=== PATIENT | female | born 1990 | race Caucasian/White ===

== ENCOUNTER 2017-02-03 10:43 | Emergency (ER) | payer BC ==
[2017-02-03 12:13] VITALS: BP 99/73
[2017-02-03] MEDS ORDERED: SUMAtriptan SQ* 6 MG/0.5 ML VIAL SUBCUT ONE (12:35)
--- NOTE | 2017-02-03 12:41 | UC ---
Headache HPI - HPI Summary HPI Summary: 26 yo female with headache since yesterday this feels like her typical migrain took maxalt >24 hrs ago pate persists n/v x 10 photophobia has had a fever and sore thoat fever broke last pm no cough - History Of Current Complaint Chief Complaint: UCGeneralIllness Stated Complaint: FEVER VOMITING DIARRHEA HEADACHE Time Seen by Provider: 02/03/17 12:16 Hx Obtained From: Patient Hx Last Menstrual Period: MAR 27 2016 Onset/Duration: Gradual Onset, Lasting Days Onset Of Symptoms: Gradual Currently Pain Is: Current Pain Scale(0-10)= - 6 Pain Scale Used: 0-10 Numeric Timing: Constant Character: Throbbing Location of Headache: Temporal Aggravating Factor: Exertion Allevating Factors: Nothing Associated Signs And Symptoms: Positive: Nausea, Vomiting. Negative: Neck Pain , Neck Stiffness, Decreased LOC, Visual Changes Related History: Similar Episode/DX As: - migrain - Allergies/Home Medications Allergies/Adverse Reactions: Allergies Allergy/AdvReac Type Severity Reaction Status Date / Time Acetaminophen [From Vicodin] Allergy Unknown Hives Verified 02/03/17 11:57 Hydrocodone [From Vicodin] Allergy Unknown Hives Verified 02/03/17 11:57 Ibuprofen Allergy Unknown Hives Verified 02/03/17 11:57 Metronidazole Allergy Unknown SWELLING Verified 02/03/17 11:57 RASH AFTER USING SUPPOSITORY Morphine and Related Allergy Unknown Hives Verified 02/03/17 11:57 Naproxen Allergy Unknown Hives Verified 02/03/17 11:57 Home Medications: Home Medications Ascorbic Acid [C 500] 500 mg PO 02/03/17 [History] Enoxaparin Sodium [Lovenox] 80 mg SC BID 02/03/17 [History Confirmed 02/03/17] Ferrous Sulfate [Iron (Ferrous Sulfate)] 50 mg PO DAILY 02/03/17 [History Confirmed 02/03/17] Ondansetron ODT TAB* [Zofran 4 MG Odt TAB*] 4 mg PO Q6H PRN 02/03/17 [History Confirmed 02/03/17] Vitamin TAB* 1 tab PO DAILY 02/03/17 [History Confirmed 02/03/17] Rizatriptan Benzoate [Maxalt-Re Dye Hand] 10 mg PO 02/03/17 [History] Sertraline* [Zoloft*] 50 mg PO BEDTIME 02/03/17 [History Confirmed 02/03/17] Vit-E 02/03/17 [History] PMH/Surg Hx/FS Hx/Imm Hx Previously Healthy: Yes Neurological History: Migraine - Surgical History Surgical History: Yes Surgery Procedure, Year, and Place: 2 C-SECTIONS. APPPENDECTOMY - Family History Known Family History: Positive: Hypertension, Other - migraines - Social History Alcohol Use: Rare Substance Use Type: None Smoking Status (MU): Never Smoked Tobacco Review of Systems Constitutional: Fever, Chills Skin: Negative Eyes: Photophobia ENT: Sore Throat Respiratory: Negative Cardiovascular: Negative Gastrointestinal: Vomiting, Diarrhea, Nausea Genitourinary: Negative Motor: Negative Neurovascular: Negative Musculoskeletal: Negative Neurological: Headache Psychological: Negative All Other Systems Reviewed And Are Negative: Yes Physical Exam Triage Information Reviewed: Yes Appearance: Well-Appearing, No Pain Distress, Well-Nourished Vital Signs: Initial Vital Signs Temp 97.7 F 02/03/17 12:02 Pulse 84 02/03/17 12:02 Resp 20 02/03/17 12:02 BP 99/73 02/03/17 12:02 Pulse Ox 99 02/03/17 12:02 Vital Signs Reviewed: Yes Eyes: Positive: Conjunctiva Clear ENT: Positive: Hearing grossly normal, Pharyngeal erythema, Tonsillar swelling. Negative: TMs normal - unable to vis due to cerumen Neck exam: Normal Neck: Positive: Nontender, No Lymphadenopathy Respiratory: Positive: Lungs clear, Normal breath sounds, No respiratory distress, No accessory muscle use Cardiovascular: Positive: RRR, No Murmur, Pulses Normal Abdomen Description: Positive: Nontender, No Organomegaly. Negative: CVA Tenderness (R), CVA Tenderness (L) Musculoskeletal: Positive: ROM Intact, No Edema Neurological Exam: Normal Neurological: Positive: Alert, Muscle Tone Normal Psychological Exam: Normal Skin Exam: Normal Re-Evaluation - Re-Evaluation First Eval Re-Evaluation Time: 13:24 Change: Improved Comment: headache much improved/desires to have her ears flused Second Eval Re-Evaluation Time: 13:56 Change: Improved - tm's normal bilaterally Headache Course/Dx - Differential Dx/Diagnosis Provider Diagnoses: pharyngitis. viral syndrome. migraine. cerumen impaction Discharge - Discharge Plan Condition: Stable Disposition: HOME Patient Education Materials: Pharyngitis (ED), Cerumen Impaction (ED), Migraine Headache (ED) Referrals: Ad Humphries MD [Primary Care Provider] - 2 Days (if not better)
== END 2017-02-03 14:05 | disposition home or self-care (01) ==
LOC: UCCORT 10:43
DX: J02.9 Acute pharyngitis, unspecified (principal); B34.9 Viral infection, unspecified; G43.909 Migraine, unspecified, not intractable, without status migrainosus; H61.20 Impacted cerumen, unspecified ear
CPT/HCPCS: 87651; 96372; 99203; G0463; J3030

== ENCOUNTER 2018-04-06 14:39 | Emergency (ER) | payer OTHER ==
[2018-04-06 16:09] VITALS: BP 109/74
--- NOTE | 2018-04-06 16:35 | ED ---
Headache - HPI Summary HPI Summary: 28 yr old female with history of post concussive migraine, prior TIAs, lupus and on lovenox for hyper coagulable state presents here with the complaint of headache. The aura began last evening, and then she went to bed in quiet room. She woke up at 130/2 am in the morning with headache, worse with noise and sound. Associated with light sensitivity. This it typical of her post concussive migraine. Pain is moderate to severe. She verbalized that she had TIA in the past year associated with migraine. She denies change in vision, speech, hearing, swallowing, gait. Denies focal weakness, numbness. No fever or chills. - History Of Current Complaint Chief Complaint: UCHeadache Stated Complaint: MIGRAINE Time Seen by Provider: 04/06/18 16:13 Hx Last Menstrual Period: 03/26/18 - Allergies/Home Medications Allergies/Adverse Reactions: Allergies Allergy/AdvReac Type Severity Reaction Status Date / Time acetaminophen [From Vicodin] Allergy Unknown Rash Verified 04/06/18 15:47 hydrocodone [From Vicodin] Allergy Unknown Rash Verified 04/06/18 15:47 methocarbamol Allergy Unknown Rash Verified 04/06/18 15:47 NSAIDS (Non-Steroidal Allergy Unknown Rash Verified 04/06/18 15:47 Anti-Inflamma Home Medications: Home Medications Amitriptyline TAB* [Elavil TAB*] 10 mg PO BEDTIME 04/06/18 [History Confirmed ] Cetirizine* [ZyrTEC 10 MG TAB*] 10 mg PO DAILY 04/06/18 [History Confirmed 04/06] Cholecalciferol TAB* [Vitamin D TAB*] 1,000 unit PO DAILY 04/06/18 [History Confirmed 04/06/18] Cyclobenzaprine (NF) [Cyclobenzaprine 5 MG (NF)] 2.5 mg PO BID 04/06/18 [ History Confirmed 04/06/18] Enoxaparin(*) [Lovenox(*)] 30 mg SUBCUT DAILY 04/06/18 [History Confirmed ] Ferrous Gluconate TAB* [Fergon TAB*] 325 mg PO BID 04/06/18 [History Confirmed 04/06/18] Fluticasone NASAL SPRAY 50MCG* [Flonase NASAL SPRAY 50MCG*] 2 spray BOTH NARES DAILY 04/06/18 [History Confirmed 04/06/18] Folic Acid TAB* [Folvite TAB*] 1 mg PO DAILY 04/06/18 [History Confirmed ] Magnesium Oxide [Magnesium] 400 mg PO DAILY 04/06/18 [History Confirmed 04/06/18 ] Riboflavin (Vitamin B2) [Riboflavin] 100 mg PO DAILY 04/06/18 [History Confirmed 04/06/18] Venlafaxine HCl [Effexor XR-] 37.5 mg PO DAILY 04/06/18 [History Confirmed 04/06] PMH/Surg Hx/FS Hx/Imm Hx Endocrine/Hematology History: Reports: Hx Systemic Lupus Erythematosus - hyper coagulable state Neurological History: Reports: Hx Transient Ischemic Attacks (TIA) - Surgical History Surgery Procedure, Year, and Place: 2 C-SECTIONS. LAP- APPY Infectious Disease History: No Infectious Disease History: Denies: Traveled Outside the [place] in Last 30 Days - Family History Known Family History: Positive: None - Social History Occupation: Disabled Alcohol Use: None Substance Use Type: Reports: None Smoking Status (MU): Never Smoked Tobacco Review of Systems Constitutional: Negative Positive: Headache. Negative: Weakness, Paresthesia, Numbness, Syncope, Slurred Speech All Other Systems Reviewed And Are Negative: Yes Physical Exam Triage Information Reviewed: Yes Vital Signs On Initial Exam: Initial Vitals Temp Pulse Resp BP Pulse Ox 99.2 F 88 17 109/74 100 04/06/18 16:03 04/06/18 16:03 04/06/18 16:03 04/06/18 16:03 04/06/18 16:03 Vital Signs Reviewed: Yes Appearance: Positive: Well-Appearing, No Pain Distress Skin: Positive: Warm, Skin Color Reflects Adequate Perfusion Head/Face: Positive: Normal Head/Face Inspection Eyes: Positive: EOMI, JANNETTE ENT: Positive: Normal ENT inspection, TMs normal Neck: Positive: Supple, Nontender. Negative: Nuchal Rigidity Respiratory/Lung Sounds: Positive: Clear to Auscultation, Breath Sounds Present Cardiovascular: Positive: RRR. Negative: Murmur Abdomen Description: Negative: Distended Musculoskeletal: Positive: Strength/ROM Intact Neurological: Positive: Sensory/Motor Intact, Alert, Oriented to Person Place, Time, CN Intact II-III, Normal Gait, Speech Normal Psychiatric: Positive: Normal Diagnostics - Vital Signs Vital Signs Temp Pulse Resp BP Pulse Ox 04/06/18 16:03 99.2 F 88 17 109/74 100 - Laboratory Lab Statement: Any lab studies that have been ordered have been reviewed, and results considered in the medical decision making process. Headache Course/Dx - Course Course Of Treatment: 28 yr old with hyper coagulable state, lupus, on lovenox bid, with history of TIA, and migraines post head injury in . She has multiple allergies. She is going to the ER for further management of her headache. - Diagnoses Provider Diagnoses: Headache Discharge - Sign-Out/Discharge Documenting (check all that apply): Patient Departure All imaging exams completed and their final reports reviewed: No Studies - Discharge Plan Condition: Good Disposition: HOME-RECOMMEND TO ED Patient Education Materials: Acute Headache (ED) Referrals: No Primary Care Phys,NOPCP [Primary Care Provider] - [facility] [Outside] Additional Instructions: You should go to the ER for further treatment of your headache. - Billing Disposition and Condition Condition: GOOD Disposition: Home-Recommend to ED
== END 2018-04-06 16:39 | disposition home health service (06) ==
LOC: UCCORT 14:39 → MERGE 14:39 → UCCORT 16:39
DX: R51 Headache (principal); Z88.6 Allergy status to analgesic agent; Z88.8 Allergy status to other drugs, medicaments and biological substances; Z88.5 Allergy status to narcotic agent
CPT/HCPCS: 99212; G0463

== ENCOUNTER 2018-07-26 10:42 | Emergency (ER) | payer OTHER ==
[2018-07-26 12:04] VITALS: BP 98/56
--- NOTE | 2018-07-26 12:12 | UC ---
UC General HPI - HPI Summary HPI Summary: sinus congestion x 3 weeks. bilateral ear pressure with occasion ringing and pain x 2 weeks. tx with drops and candling, no relief. - History of Current Complaint Chief Complaint: UCEar Stated Complaint: LEFT EAR COMPLAINT Time Seen by Provider: 07/26/18 12:01 Hx Obtained From: Patient Hx Last Menstrual Period: 07/24/17 Onset/Duration: Gradual Onset Timing: Constant Pain Intensity: 8 Associated Signs & Symptoms: Negative: Fever - Allergy/Home Medications Allergies/Adverse Reactions: Allergies Allergy/AdvReac Type Severity Reaction Status Date / Time acetaminophen [From Vicodin] Allergy Unknown Rash Verified 04/10/18 07:45 hydrocodone [From Vicodin] Allergy Unknown Rash Verified 04/10/18 07:45 methocarbamol Allergy Unknown Rash Verified 04/10/18 07:45 MS Acetaminophen Allergy Unknown Hives Verified 04/10/18 07:45 [From Vicodin] MS Hydrocodone [From Vicodin] Allergy Unknown Hives Verified 04/10/18 07:45 MS Ibuprofen [Ibuprofen] Allergy Unknown Hives Verified 04/10/18 07:45 MS Metronidazole Allergy Unknown SWELLING Verified 04/10/18 07:45 [Metronidazole] RASH AFTER USING SUPPOSITORY MS Morphine and Related Allergy Unknown Hives Verified 04/10/18 07:45 [Morphine and Related] MS Naproxen [Naproxen] Allergy Unknown Hives Verified 04/10/18 07:45 NSAIDS (Non-Steroidal Allergy Unknown Rash Verified 04/10/18 07:45 Anti-Inflamma PMH/Surg Hx/FS Hx/Imm Hx - Additional Past Medical History Additional PMH: Lupus, antiphospholipid disorder, DVT - Surgical History Surgical History: Yes Surgery Procedure, Year, and Place: 2 C-SECTIONS. LAP- [facility]Y - Family History Known Family History: Positive: None, Hypertension, Other - migraines - Social History Alcohol Use: None Substance Use Type: None Smoking Status (MU): Never Smoked Tobacco - Immunization History Vaccination Up to Date: Yes Review of Systems All Other Systems Reviewed And Are Negative: Yes Constitutional: Positive: Negative Skin: Positive: Negative Eyes: Positive: Negative ENT: Positive: Ear Ache, Nasal Discharge, Sinus Congestion, Sinus Pain/ Tenderness Respiratory: Positive: Negative Cardiovascular: Positive: Negative Gastrointestinal: Positive: Negative Genitourinary: Positive: Negative Motor: Positive: Negative Neurovascular: Positive: Negative Musculoskeletal: Positive: Negative Neurological: Positive: Negative Psychological: Positive: Negative Physical Exam Triage Information Reviewed: Yes Appearance: Well-Appearing Vital Signs: Initial Vital Signs Temp 98.1 F 07/26/18 11:58 Pulse 104 07/26/18 11:58 Resp 16 07/26/18 11:58 BP 98/56 07/26/18 11:58 Pulse Ox 100 07/26/18 11:58 Vital Signs Reviewed: Yes Eyes: Positive: Conjunctiva Clear ENT: Positive: Pharynx normal, Nasal congestion, Sinus tenderness, Other - TM's occluded by cerumen. No mastoid tenderness or auricular adenopathy.. Negative: Nasal drainage Neck: Positive: Supple, Nontender, No Lymphadenopathy Respiratory: Positive: Lungs clear, Normal breath sounds Cardiovascular: Positive: RRR, No Murmur Abdomen Description: Positive: Nontender, No Organomegaly, Soft Bowel Sounds: Positive: Present Musculoskeletal: Positive: ROM Intact Neurological: Positive: Alert Psychological: Positive: Age Appropriate Behavior Skin Exam: Normal Re-Evaluation - Re-Evaluation First Eval Re-Evaluation Time: 12:26 Change: Improved - tm's stone and canals clear post flush Course/Dx - Diagnoses Provider Diagnosis: Impacted cerumen of both ears, Sinusitis Discharge - Sign-Out/Discharge Documenting (check all that apply): Patient Departure All imaging exams completed and their final reports reviewed: No Studies - Discharge Plan Condition: Stable Disposition: HOME Prescriptions: Amoxicillin/Clavulanate TAB* [Augmentin TAB 875*] 875 mg PO BID 10 Days #20 tab Patient Education Materials: Sinusitis (ED), Cerumen Impaction (ED) Referrals: No Primary Care Phys,NOPCP [Primary Care Provider] - Additional Instructions: FOLLOW UP WITH YOUR PRIMARY CARE AT THE [facility] IN 7-10 DAYS FOR A RECHECK OR SOONER IF WORSE. - Billing Disposition and Condition Condition: STABLE Disposition: Home - Attestation Statements Provider Attestation: I was available for consult. This patient was seen by the DEEPA. The patient was not presented to , seen by or examined by nh -Josse Eubanks MD
== END 2018-07-26 12:34 | disposition home or self-care (01) ==
LOC: UCCORT 10:42
DX: H61.23 Impacted cerumen, bilateral (principal); J32.9 Chronic sinusitis, unspecified; Z88.5 Allergy status to narcotic agent; Z88.6 Allergy status to analgesic agent; Z88.8 Allergy status to other drugs, medicaments and biological substances; Z86.718 Personal history of other venous thrombosis and embolism
CPT/HCPCS: 99213; G0463

== ENCOUNTER 2019-01-16 17:15 | Emergency (ER) | payer OTHER ==
[2019-01-16 17:43] VITALS: BP 101/67
--- NOTE | 2019-01-16 17:57 | UC ---
Throat Pain/Nasal Jd HPI - HPI Summary HPI Summary: 28 yo female with onset last PM of fever and sorethroat now with nausea no cp or sob no vomiting no cough - History of Current Complaint Chief Complaint: UCGeneralIllness Stated Complaint: FEVER/ST Time Seen by Provider: 01/16/19 17:32 Hx From Patient Unobtainable Due To: Dementia Hx Last Menstrual Period: 07/24/17 Onset/Duration: Gradual Onset, Lasting Hours Severity: Moderate Pain Intensity: 5 Pain Scale Used: 0-10 Numeric Cough: None Associated Signs & Symptoms: Positive: Fever - Epiglottits Risk Factors Epiglottis Risk Factors: Negative - Allergies/Home Medications Allergies/Adverse Reactions: Allergies Allergy/AdvReac Type Severity Reaction Status Date / Time acetaminophen [From Vicodin] Allergy Unknown Rash Verified 01/16/19 17:52 hydrocodone [From Vicodin] Allergy Unknown Rash Verified 01/16/19 17:52 methocarbamol Allergy Unknown Rash Verified 01/16/19 17:52 NSAIDS (Non-Steroidal Allergy Unknown Rash Verified 01/16/19 17:52 Anti-Inflamma ibuprofen Allergy Hives Verified 01/16/19 17:52 metronidazole Allergy Swelling Verified 01/16/19 17:52 morphine Allergy Hives Verified 01/16/19 17:52 naproxen Allergy Hives Verified 01/16/19 17:52 PMH/Surg Hx/FS Hx/Imm Hx Previously Healthy: Yes - Surgical History Surgical History: Yes Surgery Procedure, Year, and Place: 2 C-SECTIONS. LAP- [facility]Y - Family History Known Family History: Positive: None, Hypertension, Other - migraines - Social History Alcohol Use: None Substance Use Type: None Smoking Status (MU): Never Smoked Tobacco - Immunization History Vaccination Up to Date: Yes Review of Systems All Other Systems Reviewed And Are Negative: Yes Constitutional: Positive: Fever Skin: Positive: Negative Eyes: Positive: Negative ENT: Positive: Sore Throat Respiratory: Positive: Negative Cardiovascular: Positive: Negative Gastrointestinal: Positive: Negative Genitourinary: Positive: Negative Motor: Positive: Negative Neurovascular: Positive: Negative Musculoskeletal: Positive: Negative Neurological: Positive: Negative Psychological: Positive: Negative Physical Exam Triage Information Reviewed: Yes Appearance: Well-Appearing, No Pain Distress, Well-Nourished Vital Signs: Initial Vital Signs Temp 97.8 F 01/16/19 17:39 Pulse 101 01/16/19 17:39 Resp 16 01/16/19 17:39 BP 101/67 01/16/19 17:39 Pulse Ox 98 01/16/19 17:39 Vital Signs Reviewed: Yes Eyes: Positive: Conjunctiva Clear ENT: Positive: Hearing grossly normal, Pharyngeal erythema, Uvula midline. Negative: Nasal congestion, Nasal drainage, Tonsillar swelling, Tonsillar exudate, Trismus, Muffled voice, Hoarse voice Neck: Positive: Supple, Nontender, No Lymphadenopathy Respiratory: Positive: Lungs clear, Normal breath sounds, No respiratory distress, No accessory muscle use Cardiovascular: Positive: RRR, No Murmur Musculoskeletal: Positive: ROM Intact, No Edema Neurological: Positive: Alert Psychological Exam: Normal Skin Exam: Normal Throat Pain/Nasal Course/Dx - Course Course Of Treatment: strep (-) - Differential Dx/Diagnosis Provider Diagnosis: Pharyngitis Discharge - Sign-Out/Discharge Documenting (check all that apply): Patient Departure All imaging exams completed and their final reports reviewed: No Studies - Discharge Plan Condition: Stable Disposition: HOME Patient Education Materials: Pharyngitis (ED) Referrals: No Primary Care Phys,NOPCP [Primary Care Provider] - Additional Instructions: strep (-) rest tylenol or advil for fever or pain recheck in 2-3 days if not better - Billing Disposition and Condition Condition: STABLE Disposition: Home
== END 2019-01-16 18:19 | disposition home or self-care (01) ==
LOC: UCCORT 17:15
DX: J02.9 Acute pharyngitis, unspecified (principal)
CPT/HCPCS: 87070; 87651; 99212; G0463